=== PATIENT | female | born 1945 | race Caucasian/White ===

== ENCOUNTER → 2018-03-19 | Outpatient (CLI) | payer MEDICARE, MEDICAID ==
[~2018-03-19] MED LIST: ACETAMINOPHEN; ASA; BARIUM SULFATE 450ML ORAL SUSP ONE; DIPH25TA26; IOHEXOL-300 100 ML BOTTLE ONE; LORA10CA; LOSA25TA12; OMEP20CA4; SIMV20TA6; TRAZADONE
== END | disposition home or self-care (01) ==
LOC: CT 08:52
PROVIDERS: ATTEND Internal Medicine Gastroenterology
DX: D64.9 Anemia, unspecified (principal); R19.7 Diarrhea, unspecified; K21.9 Gastro-esophageal reflux disease without esophagitis; I10 Essential (primary) hypertension; Z88.8 Allergy status to other drugs, medicaments and biological substances
CPT/HCPCS: 74177; Q9967